=== PATIENT | male | born 2005 ===

== ENCOUNTER 2025-01-02 13:01 | Outpatient (REF) | payer OTHER, SELFPAY ==
--- OUTSIDE RECORDS SUMMARY | 2025-01-01 13:45 | XMS_ITS | Encounter Summary ---
Author Organization [employer] Address [address] [place] [address] Care Team Providers Care Student Success Advisor Name Role Phone Edgar Boateng MD Primary Care Prov ider Encounter Details Date Type Department Care Team ([facility] st Contact Info) Description 01/01/2025 1:45 PM EDT Office Visit [facility] CH[facility] MED & PEDS [address] [facility] [place] [address] Edgar Boateng MD [address] [place], [place] [phone] Encounter for medical examination to establish care (Primary Dx); Intrinsic eczema Social History Tobacco Use Types Packs/Day Years Used Date Smoking Tobacco: Never Smokeless Tobacco: Never Tobacco Cessation:Counseling Given: Not Answered Alcohol Use Standard Drinks/Week Comments Never 0 (1 standard drink = 0.6 oz pur e alcohol) Housing Stability Answer Date Recorded What is your housing situation today? I have luna amador 12/25/[address] you li ve. Do you have problems with any of the following? None of the above 12/25/2024 Food Insecurity Answer Date Recorded Within the past 12 months, y ou worried that your food would run out before you got money to buy more: Never True 12/25/2024 Within the past 12 months,th e food you bought just didn't last and you didn't have enough money to get more: Never True Transportation Answer Date Recorded In the past 12 months, has l ack of transportation kept you from medical appts, meetings, work or from getting things needed for daily living? No 12/25/2024 Utilities Answer Date Recorded In the past 12 months, has t he electric, gas, oil or water company threatened to shut off services in your home? No 12/25/2024 Internet Access Answer Date Recorded Internet Access Q1 Yes 12/25/2024 Internet Access Q2 Not on file 12/25/2024 Sex and Gender Information Value Date Recorded Sex Assigned at Male 01/01/2025 1:42 PM EDT Legal Sex Male 2:58 PM EDT Gender Identity Male 01/01/2025 1:42 PM EDT Sexual Orientation Straight 01/01/2025 1: 42 PM EDT documented as of this encounter Last Filed Vital Signs Vital Sign Reading Time Taken Comments Blood Pressure 122/70 01/01/2025 2:04 PM EDT Pulse 80 01/01/2025 2:04 PM EDT Temperature 36.6 C (97.8 F) 01/01/2025 2:04 PM EDT Respiratory Rate 20 01/01/2025 2:04 PM EDT Oxygen Saturation - - Inhaled Oxygen Concentration - - Weight 79.4 kg (175 lb) 01/01/2025 2:04 PM EDT Height 185.4 cm (6' 1 ) 01/01/2025 2:04 PM EDT Body Mass Index 23.09 01/01/2025 2:04 PM EDT documented in this encounter Progress Notes * Edgar Cochran MD - 01/01/2025 1:45 PM EDT Subjective Patient ID: Ino Garcia is a 19 y.o. male who presents for No chief complaint on file.. HPI Patient was seen on the office to establish medical care. Review of Systems Constitutional: Negative for chills, fatigue and fever. Respiratory: Negative for cough and shortness of breath. Cardiovascular: Negative for chest pain and palpitations. Gastrointestinal: Negative for abdominal distention, abdominal pain and constipation. Objective Physical Exam Constitutional: Appearance: Normal appearance. Cardiovascular: Rate and Rhythm: Normal rate. Heart sounds: No murmur heard. Pulmonary: Effort: Pulmonary effort is normal. No respiratory distress. Breath sounds: No stridor. No wheezing or rhonchi. Abdominal: General: Abdomen is flat. There is no distension. Palpations: There is no mass. Tenderness: There is no abdominal tenderness. There is no guarding or rebound. Hernia: No hernia is present. Neurological: General: No focal deficit present. Mental Status: He is alert and oriented to person, place, and time. Psychiatric: Mood and Affect: Mood normal. Behavior: Behavior normal. Assessment/Plan Problem List Items Addressed This Visit Encounter for medical examination to establish care - Primary Last pcp visit 1-2 years ago ER: - Hospitalization:- Pmhx: eczema Pshx:- All:- Meds: - Work at [employer], Relevant Orders CBC auto differential Comprehensive Metabolic Panel Lipid Panel, Standard TSH W/Reflex to FT4 HIV-1/2 Antigen and Antibodies, Fourth Generation, with Reflexes Hepatitis C Antibody with Reflex to HCV, RNA, Quantitative, Real-Time PCR Chlamydia/N. Gonorrhoeae RNA, TMA, Vaginal Intrinsic eczema Will send triamcinolone, call back if not improving Relevant Medications triamcinolone (Kenalog) 0.1 % cream documented in this encounter Miscellaneous Notes * Assessment & Plan Note - Edgar Cochran MD - 01/01/2025 2:24 PM EDTAssociated Problem(s): Intrinsic eczema Will send triamcinolone, call back if not improving * Assessment & Plan Note - Edgar Cochran MD - 01/01/2025 2:12 PM EDTAssociated Problem(s): Encounter for medical examination to establish care Last pcp visit 1-2 years ago ER: - Hospitalization:- Pmhx: eczema Pshx:- All:- Meds: - Work at [employer], documented in this encounter Plan of Treatment Scheduled Orders Name Type Priority Associated Diagnoses Orde r Schedule Comprehensive Metabolic Panel Lab Routine Encounter for medical examination to establish care Expected: 01/01/2025 (Approximate), Expires: 01/01/2026 Lipid Panel, Standard Lab Routine Encounter for medical examination to establish care Expected: 01/01/2025 (Approximate), Expires: 01/01/2026 TSH W/Reflex to FT4 Lab Routine Encounter for medical examination to establish care Expected: 01/01/2025 (Approximate), Expires: 01/01/2026 HIV-1/2 Antigen and Antibodies, Fourth Generation, with Reflexes Lab Routine Encounter for medical examination to establish care Expected: 01/01/2025 (Approximate), Expires: 01/01/2026 Hepatitis C Antibody with Reflex to HCV, RNA, Quantitative, Real-Time PCR Lab Routine Encounter for medical examination to establish care Expected: 01/01/2025, Expires: 01/01/2026 Chlamydia/N. Gonorrhoeae RNA, TMA, Vaginal Microbiology Routine Encounter for medical examination to establish care Ordered: 01/01/2025 documented as of this encounter Procedures Procedure Name Priority Date/Time Associated Diagnosis Comments CBC WITH AUTO DIFFERENTIAL Routine 01/02/2025 1:05 PM EDT Encounter for medical examination to establish care documented in this encounter Results * (ABNORMAL) CBC auto differential (01/02/2025 1:05 PM EDT) White Blood Count 9.4 4.8 - 10.8 X10*3/uL [facility] Red Blood Count 4.96 4.60 - 5.80 X10*6/uL [facility] Hemoglobin 14.1 14.0 - 18.0 g/dl [facility] Hematocrit 42.2 42.0 - 52.0 % [facility] Mean Corpuscular Volume 85.1 80.0 - 98.0 fL [facility] Mean Corpuscular Hemoglobin 28.4 27.0 - 33.0 pg [facility] Mean Corpuscular HGB Conc 33.4 31.0 - 36.0 g/dl [facility] Red Cell Distribution Width 13.4 11.0 - 16.0 % [facility] Platelet Count 202 160 - 400 X10*3/uL [facility] Mean Platelet Volume 11.7 9.4 - 12.4 fL [facility] Neutrophils Percent Auto 80.7(H) 45 - 73 % [facility] Imm Gran Pct Auto 0.4 0.0 - 0.4 % [facility] Lymphocytes Percent Auto 12.6(L) 20 - 40 % [facility] Monocytes Percent Auto 5.1 2 - 11 % [facility] Eosinophils Percent Auto 0.6 0 - 4 % [facility] Basophils Percent Auto 0.6 0 - 2 % [facility] NRBC Pct Auto 0.0 0.0 - 0.2 /100WBC [facility] Neutrophils Absolute Auto 7.5 2.0 - 8.3 x10*3/uL [facility] Imm Gran Abs Auto 0.04(H) 0.00 - 0.03 X10*3/uL [facility] Lymphocytes Absolute Auto 1.2 1.2 - 4.9 X10*3/uL [facility] Monocytes Absolute Auto 0.5 0.1 - 1.2 X10*3/uL [facility] Eosinophils Absolute Auto 0.1 0.0 - 0.4 X10*3/uL [facility] Basophils Absolute Auto 0.1 0.0 - 0.2 X10*3/uL [facility] NRBC Abs Auto 0.000 0.0 - 0.012 X10*3/uL [facility] Blood Venous blood specimen / Unknown 01/02/2025 1:05 PM EDT 01/02/2025 2:41 PM EDT us Edgar Cochran MD LAB BLOOD ORDERABL ES Final Result Performing Organization Address City/State/[facility] Co de Phone Number [facility] [address] [place] [address] [phone] documented in this encounter Visit Diagnoses Diagnosis Encounter for medical examination to establish care- Primary Intrinsic eczema documented in this encounter Care Teams Student Success Advisor Relationship Specialty Start Date End Date Edgar Boateng MD [address] [place] [phone] PCP - General Internal Medicine 01/01/25 documented as of this encounter
[2025-01-02 14:44] LABS: MANUAL DIFF FLAG NO
[2025-01-02 14:48] LABS: Hematocrit 42.2 % (42.0-52.0); Hemoglobin 14.1 g/dl (14.0-18.0); Imm Gran Abs Auto 0.04 X10*3/uL (0.00-0.03); Imm Gran Pct Auto 0.4 % (0.0-0.4); Lymphocytes Absolute Auto 1.2 X10*3/uL (1.2-4.9); Mean Corpuscular HGB Conc 33.4 g/dl (31.0-36.0); Mean Corpuscular Hemoglobin 28.4 pg (27.0-33.0); Mean Corpuscular Volume 85.1 fL (80.0-98.0); NRBC Abs Auto 0.000 X10*3/uL (0.0-0.012); NRBC Pct Auto 0.0 /100WBC (0.0-0.2); Platelet Count 202 X10*3/uL (160-400); Red Blood Count 4.96 X10*6/uL (4.60-5.80); White Blood Count 9.4 X10*3/uL (4.8-10.8)
--- OUTSIDE RECORDS SUMMARY | 2025-01-02 15:05 | XMS_ITS | Encounter Summary ---
Author Organization [employer] Address [address] [place] [address] Care Team Providers Care Extractive Metallurgist Name Role Phone Edgar Boateng MD Primary Care Prov ider Encounter Details Date Type Department Care Team (Latest Contact Info) Description 01/01/2025 Travel Social History Tobacco Use Types Packs/Day Years Used Date Smoking Tobacco: Never Smokeless Tobacco: Never Alcohol Use Standard Drinks/Week Comments Never 0 [...] PM EDT documented as of this encounter Plan of Treatment Not on file documented as of this encounter Visit Diagnoses Not on filedocumented in this encounter Care Teams Extractive Metallurgist Relationship Specialty Start Date End Date Edgar Boateng MD [address] [place] [phone] PCP - General Internal Medicine 01/01/25 documented as of this encounter
--- OUTSIDE RECORDS SUMMARY | 2025-01-02 15:05 | XMS_ITS | Encounter Summary ---
Author Organization [employer] Address [address] [facility] 7t [place] [address] Care Team Providers Care Ductfixing Plumber Name Role Phone Edgar Boateng MD Primary Care Prov ider Reason for Visit * Reason Onset Date Comments Insurance 01/01/2025 Encounter Details Date Type Department Care Team ([facility] Contact Info) Description 01/01/2025 Telephone [facility] CH[facility] MED & PEDS [address] [facility] [place] [address] Edgar Boateng MD [address] [place], [place] [phone] Insurance Social History Tobacco Use Types Packs/Day Years [...] PM EDT documented as of this encounter Miscellaneous Notes * Telephone Encounter - Elina Farah - 01/01/2025 2:07 PM EDT Pt was advised to please contact insurance and update PCP/LOC info. Pt contacted insurance REF: [id number] IDYL to make switch and informed them he had a new patient appointment today on 01/01/25. documented in this encounter Plan of Treatment Not on file documented as of this encounter Visit Diagnoses Not on filedocumented in this encounter Care Teams Ductfixing Plumber Relationship Specialty Start Date End Date Edgar Boateng MD [address] [place] [phone] PCP - General Internal Medicine 01/01/25 documented as of this encounter
--- OUTSIDE RECORDS SUMMARY | 2025-01-02 15:05 | XMS_ITS | Encounter Summary ---
Author Organization [employer] Address [address] [facility] 7t [place] [address] Care Team Providers Care Pace Analyst Name Role Phone Edgar Boateng MD Primary Care Prov ider Reason for Visit * Reason Onset Date Comments chart prep 12/31/2024 Encounter Details Date Type Department Care Team ([facility] Contact Info) Description 12/31/[address] [facility] CHC MED & PEDS [address] [facility] [place] [address] Edagr Boateng MD [address] [place] [phone] chart prep Social History Tobacco Use Types Packs/Day Years Used Date Smoking Tobacco: Never Assessed Housing Stability Answer Date Recorded What is [...] encounter Miscellaneous Notes * Telephone Encounter - Dominick Theodore [place] - 12/31/2024 3:45 PM EDT Chart Prep Labs: not applicable Images: not applicable Referrals: not applicable Vaccines due: Covid and Flu Screenings: STI screening Overdue care gaps: SBIRT, SDOH, PHQ-9, and Disability screen documented in this encounter Plan of Treatment Not on file documented as of this encounter Visit Diagnoses Not on filedocumented in this encounter Care Teams Pace Analyst Relationship Specialty Start Date End Date ZunigaEdgar Mahoney MD [address] [place] [phone] PCP - General Internal Medicine 01/01/25 documented as of this encounter
--- OUTSIDE RECORDS SUMMARY | 2025-01-02 15:05 | XMS_ITS | Clinical Summary ---
Author Organization [employer] Address [address] [facility] [address] [place] [address] Care Team Providers Care Special Machine Operator Name Role Phone Edgar Boateng MD Primary Care Prov ider Allergies No known active allergies Medications triamcinolone (Kenalog) 0.1 % cream Apply topically if needed in the morning and at bedtime (pain and swelling). 30 g 5 Active Active Problems Problem Noted Date Diagnosed Date Encounter for medical examination to establish c are 01/01/2025 Assessment & Plan (01/01/2025 2:12 PM EDT): Last pcp visit 1-2 years ago ER: - Hospitalization:- Pmhx: eczema Pshx:- All:- Meds: - Work [facility] [employer], Intrinsic eczema 01/01/2025 Assessment & Plan (01/01/2025 2:24 PM EDT): Will send triamcinolone, call back if not improving Encounters Date Type Department Care Team Description 01/01/2025 1:45 PM EDT Office Visit [facility] MED & PEDS [address] [place] [address] Edgar Boateng MD Encounter for medical examination to establish care (Primary Dx); Intrinsic eczema 01/01/2025 Telephone [facility] MED & PEDS [address] [facility] [place] [address] Edgar Boateng MD Insurance 01/01/2025 Travel 12/31/2024 Telephone [facility] MED & PEDS [address] [facility] [place] [address] Edgar Boateng MD chart prep 12/25/2024 Patient Outreach [facility] CHC MED & PEDS [address] [place] [address] Edgar Boateng MD Pre-visit Planning (SDOH negative, Tobacco screening negative. ) from Last 3 Months Immunizations Immunization Administration Dates Next Due DTaP 06/09/2009 DTaP / Hep B / IPV 2005,2005, 006 DTaP / Hib 05/21/2006 HPV 9-Valent 08/09/2017,06/30/2016 Hep A, ped/adol, 2 dose 01/29/2007,05/21/2006 Hep B, Adolescent or Pediatric 2005,2004 Hib (HbOC) 2005,2005,2005 IPV 06/09/2009 Influenza, IIV3, injectable 06/30/2016, 3,03/17/2008 Influenza, seasonal, injecta ble, preservative free 02/09/2014 MMR 06/09/2009 MMRV 02/19/2006 Meningococcal MCV4O 06/23/2022 Meningococcal MCV4P [id number] 06/30/2016 Novel [id number], preservative-free 06/09/2009,02/15/2009 Pfizer Covid-19 Vaccine 12+ 07/17/2020 Pneumococcal Conjugate PCV 7 02/19/2006, 2005,2005,03/23 Tdap 06/30/2016 Varicella 06/09/2009 Family History Medical History Relation Name Comments No Known Problems Father Asthma Mother Cancer Neg Hx Relation Name Status Comments Father Mother Social History Tobacco Use Types Packs/Day Years [...] Orientation Straight 01/01/2025 1: 42 PM EDT Last Filed Vital Signs Vital Sign Reading [...] Mass Index 23.09 01/01/2025 2:04 PM EDT Plan of Treatment Health Maintenance Due Date Last Done Comments Chlamydia and Gonorrhea Screening 2005 Depression Screening 2005 HIV Screening 2005 Disability Screening 2005 Fluoride Varnish 2005 Alcohol/Substance Use Screening 2017 Family Planning (PISQ) 01/19/2020 Meningococcal B Vaccine (1 of 2 - Standard) 2021 Hepatitis C Screening 2023 COVID-19 Vaccine ( season) 2024 09/03/2020, 08/06/2020, 07/17/2020 Influenza Vaccine (#1) 2024 7, 02/09/2014, 12/30/2012, Additional history exists SDOH Screening 12/25/2025 12/25/2024 Tobacco Screening 01/01/2026 01/01/2025 DTaP/Tdap/Td Vaccines (7 - Td or Tdap) 06/30/2026 06/30/2016, 06/09/2009, 05/21/2006, Additional history exists Zoster Vaccines (1 of 2) 2055 RSV Patients and Patients Aged 60 years or older (1 - 1-dose 75+ series) 01/19/2080 Hepatitis B Vaccines Completed 2005, 2005, 2005, Additional history exists Pneumococcal Vaccine: Pediatrics (0 to 5 Years) and At-Risk Patients (6 to 49) Years Aged Out 02/19/2006, 2005, 2005, Additional history exists No longer eligible based on patient's age to complete this topic HIB Vaccines Completed 05/21/2006, 11/2005, 2005, Additional history exists Hepatitis A Vaccines Completed 01/29/2007, 05/22/19 07 IPV Vaccines Completed 06/09/2009, 11/2005, 2005, Additional history exists MMR Vaccines Completed 06/09/2009, 02/19/2006 Varicella Vaccines Completed 06/09/2009, 02/19/2006 HPV Vaccines Completed 08/09/2017, 06/30/2016 Meningococcal Vaccine Completed 06/23/2022, 017 RSV under 20 months Aged Out No longe r eligible based on patient's age to complete this topic Rotavirus Vaccines Aged Out No longer eligible based on patient's age to complete this topic Procedures Procedure Name Priority Date/Time Associated Diagnosis Comments CBC WITH AUTO DIFFERENTIAL Routine 01/02/2025 1:05 PM EDT Encounter for medical examination to establish care from Last 3 Months Results * (ABNORMAL) CBC auto differential (01/02/2025 1:05 PM EDT) White Blood Count 9.4 4.8 - 10.8 X10*3/uL [facility] Red Blood Count 4.96 4.60 - 5.80 X10*6/uL [facility] Hemoglobin 14.1 14.0 - 18.0 g/dl [facility] Hematocrit 42.2 42.0 - 52.0 % [facility] Mean Corpuscular Volume 85.1 80.0 - 98.0 fL [facility] Mean Corpuscular Hemoglobin 28.4 27.0 - 33.0 pg [facility] Mean Corpuscular HGB Conc 33.4 31.0 - 36.0 g/dl [facility] Red Cell Distribution Width 13.4 11.0 - 16.0 % [facility] Platelet Count 202 160 - 400 X10*3/uL [facility] Mean Platelet Volume 11.7 9.4 - 12.4 fL [facility] Neutrophils Percent Auto 80.7(H) 45 - 73 % [facility] Imm Gran Pct Auto 0.4 0.0 - 0.4 % [facility] Lymphocytes Percent Auto 12.6(L) 20 - 40 % [facility] Monocytes Percent Auto 5.1 2 - 11 % [facility] Eosinophils Percent Auto 0.6 0 - 4 % [facility] Basophils Percent Auto 0.6 0 - 2 % [facility] NRBC Pct Auto 0.0 0.0 - 0.2 /100WBC [facility] Neutrophils Absolute Auto 7.5 2.0 - 8.3 x10*3/uL [facility] Imm Gran Abs Auto 0.04(H) 0.00 - 0.03 X10*3/uL [facility] Lymphocytes Absolute Auto 1.2 1.2 - 4.9 X10*3/uL [facility] Monocytes Absolute Auto 0.5 0.1 - 1.2 X10*3/uL [facility] Eosinophils Absolute Auto 0.1 0.0 - 0.4 X10*3/uL [facility] Basophils Absolute Auto 0.1 0.0 - 0.2 X10*3/uL [facility] NRBC Abs Auto 0.000 0.0 - 0.012 X10*3/uL [facility] Blood Venous blood specimen / Unknown 01/02/2025 1:05 PM EDT 01/02/2025 2:41 PM EDT us Edgar Cochran MD LAB BLOOD ORDERABL ES Final Result [facility] [address] [place] [address] [phone] from Last [address] [phone] [facility] Care Teams Special Machine Operator Relationship Specialty Start Date End Date Edgar Boateng MD [address] [place] [address] [place] [phone] PCP - General Internal Medicine 01/01/25
[2025-01-02 15:25] LABS: Alanine Aminotransferase 13 U/L (0-40); Albumin Level 4.8 g/dL (3.5-5.0); Alkaline Phosphatase 73 U/L (39-117); Anion Gap 14 (12-20); Aspartate Amino Transferase 27 U/L (5-37); Blood Urea Nitrogen 14 mg/dL (9-16); Calcium 9.0 mg/dL (8.4-10.2); Carbon Dioxide 24 mmol/L (22-29); Chloride 109 mmol/L (96-108); Cholesterol 152 mg/dL (<200); Estimated Glomerular Filt Rate > 60; HDL Cholesterol 36 mg/dL (>40); Potassium 4.0 mmol/L (3.3-5.1); Sodium 143 mmol/L (135-145); Total Protein 7.5 g/dL (6.5-8.0); Triglycerides 85 mg/dL (<150)
[2025-01-03 04:04] LABS: HIV Num 1 0.07 S/CO (0.00-0.99); ~HepC Num1 0.30 S/CO (0.00-0.79); ~Hepatitis C Antibody Nonreactive (Nonreactive)
== END 2025-01-02 13:02 | disposition home or self-care (01) ==
LOC: HO.CHCLDS 13:01
PROVIDERS: Visit Provider Internal Medicine
DX: Z00.00 Encounter for general adult medical examination without abnormal findings (principal); Z11.4 Encounter for screening for human immunodeficiency virus [HIV]; Z11.59 Encounter for screening for other viral diseases
CPT/HCPCS: 36415; 80053; 80061; 84443; 85025; 86803; 87389